=== PATIENT | male | born 1970 | race Caucasian/White ===

== ENCOUNTER 2020-07-28 12:08 | Inpatient (IN) | payer OTHER ==
[~2020-07-28] VITALS: Ht 190.5 cm; Wt 88.3 kg
[2020-07-28 12:32] LABS: BASOPHILS % (AUTO) 1.3 % (0.0-5.0); EOSINOPHILS % (AUTO) 1.3 % (0.0-8.0); LYMPHOCYTES % (AUTO) 13.1 % (21.0-51.0); MEAN CORPUSCULAR HEMOGLOBIN 32.4 pg (27.0-33.0); MEAN CORPUSCULAR VOLUME 90.2 fL (79-99); MONOCYTES % (AUTO) 9.7 % (3.0-13.0); NEUTROPHILS % (AUTO) 74.1 % (40.0-77.0); PLATELET COUNT (AUTO) 189 K/uL (130-400); RED BLOOD CELL COUNT(AUTO) 5.21 MIL/uL (4.50-6.20)
[2020-07-28 12:34] LABS: APPEARANCE,URINE Clear (CLEAR); BILIRUBIN,URINE Negative (NEGATIVE); COLOR,URINE Yellow (YELLOW); GLUCOSE, URINE (UA) Negative (NEGATIVE); KETONES,URINE Negative (NEGATIVE); LEUKOCYTE ESTERASE ,URINE Negative (NEGATIVE); NITRATE,URINE Negative (NEGATIVE); OCCULT BLOOD,URINE Trace (NEGATIVE); PH,URINE 5.5 (5.0-8.0); PROTEIN,URINE Negative (NEGATIVE)
[2020-07-28 12:41] LABS: AMPHET/METH SCREEN,URINE NEGATIVE (NEGATIVE); BARBITURATE SCREEN, URINE NEGATIVE (NEGATIVE); BENZODIAZEPINES SCREEN,URINE NEGATIVE (NEGATIVE); CANNABINOID SCREEN,URINE NEGATIVE (NEGATIVE); COCAINE SCREEN,URINE NEGATIVE (NEGATIVE); OPIATE SCREEN,URINE NEGATIVE (NEGATIVE); PHENCYCLIDINE SCREEN,URINE NEGATIVE (NEGATIVE)
[2020-07-28] MEDS ORDERED: ONDANSETRON HCL 4 MG/2 ML VIAL ONE ×2 (12:42→18:36)
[2020-07-28] MEDS ORDERED: SODIUM CHLORIDE 0.9% 1000ML 1,000 ML IV ONE (12:43)
[2020-07-28 12:47] LABS: CREATINE KINASE, TOTAL 96 U/L (21-232); LIPASE 175 U/L (114-286)
[2020-07-28 12:48] LABS: BILIRUBIN,TOTAL 0.9 mg/dL (0.2-1.0); POTASSIUM 4.1 mmol/L (3.5-5.1); SALICYLATE 3.5 mg/dL (2.8-20.0); TOTAL PROTEIN, SERUM 8.3 g/dL (6.0-8.3)
[2020-07-28 13:10] LABS: BACTERIA,URINE Rare /HPF (None Seen); RBC,URINE 0-1 /HPF (0-1); WBC,URINE 0-1 /HPF (0-1)
[2020-07-28] MEDS ORDERED: CHLORDIAZEPOXIDE HCL 25 MG CAP ONE ×3 (13:51→21:06)
[2020-07-28] MEDS ORDERED: ACETAMINOPHEN EXTRA STRENGTH 500 MG TABLET PO PRN (14:30)
[2020-07-28] MEDS ORDERED: PHARMACY COMMUNICATION MISC PRN (14:30)
[2020-07-28] MEDS ORDERED: ONDANSETRON HCL 4 MG/2 ML VIAL IVP PRN (14:30)
[2020-07-28] MEDS ORDERED: ONDANSETRON HCL 4 MG/2 ML VIAL IV PRN (14:30)
--- NOTE | 2020-07-28 15:00 | NUR ---
[facility] Referral for DETOX Program SONG visited pt. who is awake, alert, oriented and cooperative. Pt. reports that he is single, not currently employed, uninsured, recently relocated from [facility] and is residing with his mother and brother. Pt. is independent, drives, no HH, DME, Oxygen or Provider services;[facility] [address] for RX. Pt. denies any history of depression, denies any current thoughts of harm to self or others. Pt. reports history of anxiety for which he was being treated by Dr. Alise Laura in the [facility] and will follow up with Dr. Hanson. Pt. denies any use of illicit substances and reports that he drinks approximately a case of beer/night X2y; pt. is a cigarette smoker. Pt. has been in Treatment facilities for detox twice in the last two years, in [facility] and in [place]. SW spoke with pt. about Substance Use Disorder services under [facility] and he reports that he is aware of services and has already contacted them, to follow up post discharge. Pt. did not accept pamphlet for services as he said he already has Vicente's number to contact directly and that he will contact him after he is discharged. Pt. reports a strong support system among family. Pt's cousin Simone to provide transportation on discharge [phone] or his brother Bharath Guillory [phone]; pt. feels safe returning home after discharge. SONG informed ATIYA Rizzo of pt's awareness and contact with [facility]/Detox program. DCP: Return home and contact [facility] Substance Use D/O Services. Addendum: 07/28/20 at 1625 by KIM OLSEN Amended: Links added.
--- NOTE | 2020-07-28 15:00 | NUR ---
Pt. is independent, single, and resides with his mother and brother (recently relocated). Pt. has no HH, DME, Oxygen, or Provider Services;[facility] for RX's. Pt. is being admitted from ER. Pt. to contact [facility] Substance Use Disorder Services if he still wants services after discharge/he has contact info. Pt. feels safe returning home after discharge. Pt's brother Bharath Mason [phone] or cousin Simone Osborn [phone] will provide transportation home. Addendum: 07/28/20 at 1634 by KIM OLSEN Amended: Links added.
[2020-07-28 17:41] LABS: CREATININE 0.9 mg/dL (0.5-1.5); POTASSIUM 3.8 mmol/L (3.5-5.1)
[2020-07-28] MEDS: NICOTINE 14 MG/ 24 HR PATCH TD SCH (18:30)
[2020-07-28] MEDS ORDERED: ACETAMINOPHEN EXTRA STRENGTH 500 MG TABLET ONE (18:36)
[2020-07-28] MEDS: FAMOTIDINE/PF 20 MG/2 ML VIAL IV SCH (21:00)
[2020-07-28 23:00] VITALS: BP 135/78
[2020-07-29] MEDS ORDERED: OMEP20TA25 PO (01:10)
[2020-07-29] MEDS ORDERED: FLUO40CA49 PO (01:10)
[2020-07-29] MEDS ORDERED: LISI40TA4 PO (01:10)
[2020-07-29] MEDS: CHLORDIAZEPOXIDE HCL 25 MG CAP PO PRN ×4 (02:11→21:49)
[2020-07-29] MEDS: LORAZEPAM 2 MG/ML 1 ML VIAL IVP PRN ×2 (02:13→21:49)
[2020-07-29 03:52] VITALS: BP 113/64
[2020-07-29 06:06] LABS: BASOPHILS % (AUTO) 0.9 % (0.0-5.0); EOSINOPHILS % (AUTO) 2.7 % (0.0-8.0); HEMATOCRIT 44.9 % (42-54); LYMPHOCYTES % (AUTO) 22.1 % (21.0-51.0); MEAN CORPUSCULAR HEMOGLOBIN 32.5 pg (27.0-33.0); MEAN CORPUSCULAR HGB CONC 36.1 g/dL (32.0-36.0); MONOCYTES % (AUTO) 11.5 % (3.0-13.0); NEUTROPHILS % (AUTO) 62.3 % (40.0-77.0); PLATELET COUNT (AUTO) 155 K/uL (130-400); RED BLOOD CELL COUNT(AUTO) 4.99 MIL/uL (4.50-6.20); RED CELL DISTRIBUTION WIDTH 13.7 % (11.0-15.5); WHITE BLOOD COUNT (AUTO) 4.4 K/uL (4.8-10.8)
[2020-07-29 06:21] LABS: ALBUMIN 3.3 g/dL (3.5-5.0); BILIRUBIN,DIRECT 0.2 mg/dL (0.0-0.3); BILIRUBIN,TOTAL 0.9 mg/dL (0.2-1.0); TOTAL PROTEIN, SERUM 7.1 g/dL (6.0-8.3)
[2020-07-29 09:05] VITALS: BP 132/84
[2020-07-29] MEDS: FAMOTIDINE/PF 20 MG/2 ML VIAL IV SCH ×2 (10:11→21:05)
[2020-07-29] MEDS: NICOTINE 14 MG/ 24 HR PATCH TD SCH (10:11)
[2020-07-29] MEDS: FOLIC ACID 1 MG TABLET PO SCH (10:11)
[2020-07-29] MEDS: MULTIVITAMIN TABLET PO SCH (10:11)
[2020-07-29 12:12] VITALS: BP 155/86
[2020-07-29] MEDS ORDERED: THIAMINE HCL 100 MG/ML 2ML VIAL IVP SCH (16:30)
[2020-07-29 16:32] VITALS: BP 125/77
[2020-07-29] MEDS ORDERED: THIAMINE HCL 200 MG in SODIUM CHLORIDE 0.9% 50 ML IM SCH (16:50)
[2020-07-29] MEDS: SODIUM CHLORIDE 0.9% 1000ML 1,000 ML IV SCH (18:00)
[2020-07-29 19:00] VITALS: BP 106/69
[2020-07-30] VITALS: BP 126/77
[2020-07-30] MEDS: CHLORDIAZEPOXIDE HCL 25 MG CAP PO PRN ×4 (03:42→23:01)
[2020-07-30 04:00] VITALS: BP 114/75
[2020-07-30 06:02] LABS: HEMATOCRIT 42.3 % (42-54); MEAN CORPUSCULAR HEMOGLOBIN 32.4 pg (27.0-33.0); MEAN CORPUSCULAR HGB CONC 35.9 g/dL (32.0-36.0); MEAN CORPUSCULAR VOLUME 90.2 fL (79-99); RED BLOOD CELL COUNT(AUTO) 4.69 MIL/uL (4.50-6.20); RED CELL DISTRIBUTION WIDTH 13.8 % (11.0-15.5)
[2020-07-30 06:22] LABS: ALANINE AMINOTRANSFERASE 56 U/L (12-78); ASPARTATE AMINOTRANSFERASE 63 U/L (10-37); BILIRUBIN,TOTAL 0.8 mg/dL (0.2-1.0); CARBON DIOXIDE 29 mmol/L (21-32); CHLORIDE 97 mmol/L (101-111); CREATININE 1.2 mg/dL (0.5-1.5); GLOMERULAR FILTR. RATE CALC 69 mL/min (>60); GLUCOSE,RANDOM 104 mg/dL (70-105); PHOSPHORUS 3.5 mg/dL (2.5-4.9); POTASSIUM 3.4 mmol/L (3.5-5.1); SODIUM SERUM 131 mmol/L (136-145); THYROID STIMULATING HORMONE 0.84 uIU/mL (0.36-3.74); TOTAL PROTEIN, SERUM 6.4 g/dL (6.0-8.3); UREA NITROGEN, BLOOD 6 mg/dL (7-18)
[2020-07-30 06:28] LABS: AMMONIA 11 umol/L (11-32)
[2020-07-30] MEDS ORDERED: POTASSIUM CHLORIDE 20 MEQ ERTAB PO PRN (06:45)
[2020-07-30] MEDS ORDERED: POTASSIUM CHLORIDE 10% ELIXIR 20 MEQ/15 ML UDCUP PO PRN (06:45)
[2020-07-30] MEDS ORDERED: LIDOCAINE HCL-MPF 1% 2ML VIAL IV PRN (06:45)
[2020-07-30] MEDS ORDERED: POTASSIUM CHLORIDE 20MEQ/100ML 100 ML IV PRN (06:45)
[2020-07-30 07:13] VITALS: BP 116/78
[2020-07-30] MEDS: MULTIVITAMIN TABLET PO SCH (08:56)
[2020-07-30] MEDS: FOLIC ACID 1 MG TABLET PO SCH (08:56)
[2020-07-30] MEDS: FAMOTIDINE/PF 20 MG/2 ML VIAL IV SCH ×2 (08:56→20:39)
[2020-07-30] MEDS: NICOTINE 14 MG/ 24 HR PATCH TD SCH (08:56)
[2020-07-30] MEDS: THIAMINE HCL 100 MG TABLET PO SCH (08:56)
[2020-07-30] MEDS: SODIUM CHLORIDE 0.9% 1000ML 1,000 ML IV SCH ×2 (09:05→20:40)
[2020-07-30 10:43] VITALS: BP 112/77
[2020-07-30] MEDS: LORAZEPAM 2 MG/ML 1 ML VIAL IVP PRN (12:52)
[2020-07-30 15:30] VITALS: BP 119/84
[2020-07-30 20:08] VITALS: BP 111/69
--- NOTE | 2020-07-30 22:30 | NUR ---
PATIENT VERY ANXIOUS PATIENT ACTIVELY ANXIOUS WITH TREMORS AND PROFUSE SWEATS. LIBRIUM TO BE GIVEN
[2020-07-31 00:12] VITALS: BP 129/77
[2020-07-31 04:12] VITALS: BP 122/78
--- NOTE | 2020-07-31 06:00 | NUR ---
PATIENT ANXIOUS PATIENT FOUND TO BE ANXIOUS, WITH TREMORS AND PROFUSE SWEATS. WILL ADMINISTER LIBRIUM
[2020-07-31 06:22] LABS: HEMATOCRIT 43.8 % (42-54); MEAN CORPUSCULAR HEMOGLOBIN 32.2 pg (27.0-33.0); MEAN CORPUSCULAR HGB CONC 35.2 g/dL (32.0-36.0); MEAN CORPUSCULAR VOLUME 91.6 fL (79-99); RED BLOOD CELL COUNT(AUTO) 4.78 MIL/uL (4.50-6.20); RED CELL DISTRIBUTION WIDTH 13.9 % (11.0-15.5); WHITE BLOOD COUNT (AUTO) 5.1 K/uL (4.8-10.8)
[2020-07-31 06:33] LABS: ALBUMIN 3.3 g/dL (3.5-5.0); BILIRUBIN,TOTAL 1.2 mg/dL (0.2-1.0); MAGNESIUM 2.6 mg/dL (1.80-2.40); PHOSPHORUS 3.8 mg/dL (2.5-4.9); POTASSIUM 3.6 mmol/L (3.5-5.1); TOTAL PROTEIN, SERUM 6.8 g/dL (6.0-8.3)
[2020-07-31] MEDS: CHLORDIAZEPOXIDE HCL 25 MG CAP PO PRN (06:43)
[2020-07-31 07:30] VITALS: BP 123/84
[2020-07-31] MEDS: FOLIC ACID 1 MG TABLET PO SCH (09:09)
[2020-07-31] MEDS: MULTIVITAMIN TABLET PO SCH (09:09)
[2020-07-31] MEDS: NICOTINE 14 MG/ 24 HR PATCH TD SCH (09:09)
[2020-07-31] MEDS: THIAMINE HCL 100 MG TABLET PO SCH (09:09)
[2020-07-31] MEDS: FAMOTIDINE/PF 20 MG/2 ML VIAL IV SCH (09:10)
[2020-07-31] MEDS ORDERED: NICO-704 TD (09:14)
[2020-07-31] MEDS ORDERED: THIA100T91 PO (09:14)
[2020-07-31] MEDS ORDERED: LIB25 PO (09:14)
[2020-07-31] MEDS ORDERED: FOLI1 PO (09:14)
[2020-07-31 11:43] VITALS: BP 111/76
== END 2020-07-31 15:45 | disposition home or self-care (01) | DRG 641 ==
LOC: EDH 12:08 → EDHIP 13:30 → 2CH 22:42 → 4CH 22:44
PROVIDERS: ADMIT Hospitalist; ATTEND Hospitalist
DX: E87.1 Hypo-osmolality and hyponatremia (principal); R62.7 Adult failure to thrive; I10 Essential (primary) hypertension; E87.8 Other disorders of electrolyte and fluid balance, not elsewhere classified; F10.229 Alcohol dependence with intoxication, unspecified; E87.6 Hypokalemia; F41.9 Anxiety disorder, unspecified; K21.9 Gastro-esophageal reflux disease without esophagitis; Y90.8 Blood alcohol level of 240 mg/100 ml or more; N28.9 Disorder of kidney and ureter, unspecified; Z68.24 Body mass index [BMI] 24.0-24.9, adult
CPT/HCPCS: 36415; 80048; 80053; 80076; 80305; 81001; 82140; 82550; 83690; 83735; 84100; 84145; 84443; 85025; 85027; 93005; G0378; G0481; J2060; J2405; J3411; J3490; J7030